=== PATIENT | male | born 1960 | race African-American/Black ===

== ENCOUNTER 2019-11-02 19:29 | Emergency (ER) | payer MEDICAID, OTHER ==
[~2019-11-02] VITALS: Ht 190.5 cm; Wt 100.0 kg
[2019-11-02] MEDS ORDERED: TRIH5TAB2 PO (19:42)
[2019-11-02] MEDS ORDERED: AMLO-150 PO (19:42)
[2019-11-02] MEDS ORDERED: OMEG1CAP23 PO (19:42)
[2019-11-02] MEDS ORDERED: PRAV40TA2 PO (19:42)
[2019-11-02] MEDS ORDERED: POLY15DR8 OP (19:42)
[2019-11-02] MEDS ORDERED: RISP3TAB24 PO (19:42)
--- NOTE | 2019-11-02 19:48 | NUR ---
TASK RN : PT RAFAELA BAILEY FOR BILATERAL PEDAL EDEMA FROM [facility]. PT RECENTLY SEEN AT [facility] FOR SAME THING. HX OF CKD STAGE 3. PT C/O CP THAT IS INTERMITTENT AND HAS BEEN GOING ON FOR YEARS. PT PULSES 2+. PT ANIKA. LAW VALDEZ AT FOR EVAL AND POC. PT PLACED ON SPO2/BP MONITORING. VSS. MT
[2019-11-02 20:16] LABS: BASOPHILS # (AUTO) 0.03 x10^3/uL (0-0.1); BASOPHILS % (AUTO) 1 % (0-1); EOSINOPHILS # (AUTO) 0.36 x10^3/uL (0-0.4); EOSINOPHILS % (AUTO) 5 % (1-7); LYMPHOCYTES # (AUTO) 1.25 x10^3/uL (1-3.4); LYMPHOCYTES % (AUTO) 17 % (22-44); MD NO; MEAN CORPUSCULAR HEMOGLOBIN 28.1 pg (27.5-34.5); MEAN CORPUSCULAR HGB CONC 32.8 g/dL (33.2-36.2); MEAN PLATELET VOLUME 8.5 fL (7.4-10.4); MONOCYTES # (AUTO) 0.62 x10^3/uL (0.2-0.8); MONOCYTES % (AUTO) 8 % (2-9); NEUTROPHILS # (AUTO) 5.19 x10^3/uL (1.8-6.8); NEUTROPHILS % (AUTO) 70 % (42-75); PLATELET COUNT 245 x10^3/uL (130-400); RED BLOOD COUNT 5.24 x10^6/uL (4.38-5.82); RED CELL DISTRIBUTION WIDTH 16.4 % (9.4-14.8)
[2019-11-02 20:28] LABS: ALANINE AMINOTRANSFERASE 23 U/L (12-78); ALBUMIN 3.3 g/dL (3.4-5.0); ANION GAP 7 mmol/L (5-15); CALCIUM 8.4 mg/dL (8.5-10.1); CHLORIDE 109 mmol/L (98-107); CREATININE 1.83 mg/dL (0.7-1.3)
[2019-11-02 20:31] LABS: ALKALINE PHOSPHATASE 76 U/L (45-117); BILIRUBIN,TOTAL 0.4 mg/dL (0.2-1.0)
--- NOTE | 2019-11-02 20:41 | NUR ---
FLOAT RN: PT UP TO BR WITH STEADY GAIT. CHART UP FOR RECHECK.
--- NOTE | 2019-11-02 21:57 | NUR ---
PATIENT IS UNAWARE OF ADDRESS IN WHICH HIS HOUSE IS. 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 PATIENT WAS PICKED UP AT [facility] AT [address]ESS [id number] [facility]. PATIENT GIVEN TAXI VOUCHER. PATIENT TAKEN TO DISCHARGE DESK. PATIENT VERBALIZED UNDERSTANDING OF SELF CARE AND FOLLOW UP CARE AT HOME. PATIENT GIVEN PRESCRIPTION FOR LASIX, VERBALIZED UNDERSTANDING. PATIENT AMBULATORY TO TAXI.
[2019-11-02 21:59] VITALS: BP 146/87
== END 2019-11-02 22:02 | disposition home or self-care (01) ==
LOC: ED 21:43
DX: I87.2 Venous insufficiency (chronic) (peripheral) (principal); R60.0 Localized edema; R07.9 Chest pain, unspecified; F17.210 Nicotine dependence, cigarettes, uncomplicated
CPT/HCPCS: 36415; 80053; 85025; 99283; 99406